=== PATIENT | female | born 1995 | race Caucasian/White ===

== ENCOUNTER 2017-09-22 10:13 | Emergency (ER) | payer BC ==
--- NOTE | 2017-09-22 10:24 | ED PDOC ---
Arrival/HPI - General Time Seen by Provider: 09/22/17 10:23 Historian: Patient - History of Present Illness Narrative History of Present Illness (Text): 09/22/17 10:23 22 y/o female, no significant pmh, nkda, c/o bilateral ear pain started last night with no fall or trauma. Aching pain, dull like sensation, no change in hearing, no bleeding, no pain when pulling the ears, no rash, no coughing or runny nose, no fever or chills, no night sweat, no other medical or psychological complaints. Past Medical History - Provider Review Nursing Documentation Reviewed: Yes Family/Social History - Physician Review Nursing Documentation Reviewed: Yes Family/Social History: Unknown Family HX Allergies/Home Meds Allergies/Adverse Reactions: Allergies No Known Allergies Allergy (Verified 09/22/17 10:27) Review of Systems - Review of Systems Constitutional: absent: Fatigue, Fevers Eyes: absent: Vision Changes ENT: Other (+ear pain). absent: Hearing Changes Respiratory: absent: SOB, Cough Cardiovascular: absent: Chest Pain, Syncope Gastrointestinal: absent: Abdominal Pain, Diarrhea, Nausea, Vomiting Skin: absent: Rash, Pruritis Neurological: absent: Headache Psychiatric: absent: Anxiety, Depression, Suicidal Ideation Physical Exam Vital Signs Reviewed: Yes Vital Signs Temp Pulse Resp BP Pulse Ox 09/22/17 10:24 98.3 F 82 18 100/67 99 Temperature: Afebrile Blood Pressure: Normal Pulse: Regular Respiratory Rate: Normal Appearance: Positive for: Well-Appearing, Non-Toxic, Comfortable Pain Distress: Moderate Mental Status: Positive for: Alert and Oriented X 3 - Systems Exam Head: Present: Atraumatic, Normocephalic Pupils: Present: PERRL Extroacular Muscles: Present: EOMI Conjunctiva: Present: Normal Ears: Present: Other (Ears: Rt. TM erythematous and intact, lt. manny color and intact, bilateral auditory canals non-erythematous, no mastoid tenderness. ) Mouth: Present: Moist Mucous Membranes Pharnyx: No: ERYTHEMA, EXUDATE, TONSILS ENLARGED Nose (Internal): Present: Normal Inspection, No Active Bleeding. No: Rhinorrhea , Epistaxis Neck: Present: Normal Range of Motion, Trachea Midline. No: Meningeal Signs, MIDLINE TENDERNESS, Lymphadenopathy Respiratory/Chest: Present: Clear to Auscultation, Good Air Exchange. No: Respiratory Distress, Accessory Muscle Use Cardiovascular: Present: Regular Rate and Rhythm, Normal S1, S2. No: Murmurs Abdomen: Present: Normal Bowel Sounds. No: Tenderness, Distention, Peritoneal Signs, Rebound, Guarding Back: Present: Normal Inspection Upper Extremity: Present: Normal Inspection. No: Cyanosis, Edema Lower Extremity: Present: Normal Inspection. No: Edema Neurological: Present: GCS=15, CN II-XII Intact, Speech Normal Skin: Present: Warm, Dry, Normal Color. No: Rashes Psychiatric: Present: Alert, Oriented x 3, Normal Insight, Normal Concentration Medical Decision Making ED Course and Treatment: 09/22/17 10:41 - is negative -toradol IM -Augmentin 09/22/17 12:18 -Pain resolved, feeling much better. -Discharge home with augmentin, naproxen, follow up with your own pmd and ENT within 2 days, return to the ER for any new or worsening signs or symptoms. - Medication Orders Current Medication Orders: Discontinued Medications Amoxicillin/Clavulanate Potassium (Augmentin 875 Mg-125 Mg Tab) 1 tab PO STAT STA PRN Reason: Protocol Stop: 09/22/17 10:38 Last Admin: 09/22/17 11:02 Dose: 1 tab Ketorolac Tromethamine (Toradol) 60 mg IM STAT STA Stop: 09/22/17 10:38 Last Admin: 09/22/17 11:02 Dose: 60 mg MAR Pain Assessment Document 09/22/17 11:02 BELKIS (Rec: 09/22/17 11:07 BELKIS [id number]) Pain Reassessment Is this a pain reassessment? Yes Presence of Pain Presence of Pain Yes Pain Scale Used Pain Scale Used Numeric Location Left, Right or Bilateral Bilateral Pain Location Body Site Ear Description Description Constant Intensity of Pain at present 6 IM Administration Charges Document 09/22/17 11:02 BELKIS (Rec: 09/22/17 11:07 BELKIS [id number]) Injection Site MAR Injection Site Left Gluteus Neftaly Charges for Administration # of IM Administrations 1 - PA / [employer] / Resident Statement MD/DO has reviewed & agrees with the documentation as recorded. Disposition/Present on Arrival - Present on Arrival Any Indicators Present on Arrival: No History of DVT/PE: No History of Uncontrolled Diabetes: No Urinary Catheter: No History of Decub. Ulcer: No - Disposition Have Diagnosis and Disposition been Completed?: Yes Diagnosis: Otitis media Disposition: HOME/ ROUTINE Disposition Time: 10:42 Patient Plan: Discharge Patient Problems: Current Active Problems Problem Status Onset Otitis media Acute Condition: GOOD Additional Instructions: -Discharge home with augmentin, naproxen, follow up with your own pmd and ENT within 2 days, return to the ER for any new or worsening signs or symptoms. Prescriptions: Amoxicillin/Clavulanate [Augmentin 875 MG-125 MG] 1 tab PO BID #20 tab Ibuprofen [Motrin Tab] 600 mg PO QID PRN #30 tab PRN Reason: Other Referrals: Leander Pereira MD [Primary Care Provider] - Follow up with primary Brian De Paz DO [[facility]] - Follow up with primary Forms: WORK NOTE
[2017-09-22 10:27] VITALS: BP 100/67; PULSE 82; RESP 18; TEMP 98.3; O2SAT 99
[2017-09-22] MEDS ORDERED: Amoxicillin-Clav 875-125 mg Tab PO STA (10:37)
== END 2017-09-22 12:21 | disposition home or self-care (01) ==
LOC: ED 10:13
DX: H66.90 Otitis media, unspecified, unspecified ear (principal)
CPT/HCPCS: 96372; 99282; J1885